=== PATIENT | female | born 2000 | race Caucasian/White ===

== ENCOUNTER 2020-07-08 10:15 | Emergency (ER) | payer OTHER ==
[~2020-07-08] VITALS: Ht 162.6 cm; Wt 63.6 kg
[2020-07-08 11:40] LABS: APPEARANCE,URINE CLOUDY (CLEAR); BILIRUBIN,URINE NEGATIVE (NEGATIVE); GLUCOSE, URINE (UA) NEGATIVE (NEGATIVE); KETONES,URINE TRACE mg/dL (NEGATIVE); LEUKOCYTE ESTERASE ,URINE MODERATE (NEGATIVE); NITRATE,URINE NEGATIVE (NEGATIVE); OCCULT BLOOD,URINE LARGE (NEGATIVE); PH,URINE 7.5 (5.0-8.0); PROTEIN,URINE POS 1+ (NEGATIVE)
[2020-07-08 11:55] LABS: BACTERIA,URINE None Seen /HPF (None Seen); SQUAMOUS EPITHELIAL CELL,UR Few /LPF (None Seen); WBC,URINE 26-50 /HPF (0-5)
[2020-07-08] MEDS ORDERED: NITROFURANTOIN/NITROFURAN MAC 100 MG CAPSULE [MACROBID] PO ONE (12:45)
[2020-07-08] MEDS ORDERED: PHENAZOPYRIDINE HCL 100 MG TABLET PO ONE (12:45)
[2020-07-08 12:59] VITALS: BP 116/75
== END 2020-07-08 13:00 | disposition home or self-care (01) ==
LOC: EMS 10:23
DX: N39.0 Urinary tract infection, site not specified (principal)
CPT/HCPCS: 87086; 87210; 87491; 87591

== ENCOUNTER 2020-09-28 12:34 | Emergency (ER) | payer OTHER ==
[~2020-09-28] VITALS: Ht 160 cm; Wt 59.1 kg
[2020-09-28 12:36] VITALS: BP 116/63
== END 2020-09-28 13:42 | disposition home or self-care (01) ==
LOC: EMS 12:46
DX: Z20.828 Contact with and (suspected) exposure to other viral communicable diseases (principal)
CPT/HCPCS: 99283; U0003

== ENCOUNTER 2020-10-14 19:50 | Emergency (ER) | payer OTHER ==
[~2020-10-14] VITALS: Ht 162.6 cm; Wt 65.0 kg
[2020-10-15 01:30] VITALS: BP 110/64
[2020-10-15] MEDS ORDERED: IBUPROFEN 400 MG TABLET PO ONE (01:30)
== END 2020-10-15 01:43 | disposition home or self-care (01) ==
LOC: EMS 19:50
DX: M79.644 Pain in right finger(s) (principal)

== ENCOUNTER 2022-10-08 17:48 | Emergency (ER) | payer OTHER ==
[~2022-10-08] VITALS: Ht 162.6 cm; Wt 63.6 kg
[2022-10-08 17:53] VITALS: BP 143/77
== END 2022-10-08 21:55 | disposition home or self-care (01) ==
LOC: EMS 21:55
DX: L72.0 Epidermal cyst (principal)
CPT/HCPCS: 99281; Z7502

== ENCOUNTER 2023-06-25 07:45 | Emergency (ER) | payer OTHER ==
[~2023-06-25] VITALS: Ht 162.6 cm; Wt 62.3 kg
[2023-06-25 08:03] LABS: COVID AG,FIA SOURCE NASAL SWAB
[2023-06-25 08:23] LABS: INFLUENZA TYPE A NEGATIVE FOR TYPE A (NEGATIVE); INFLUENZA TYPE B NEGATIVE FOR TYPE B (NEGATIVE)
[2023-06-25 08:24] LABS: SARS-COV2 (COVID) ANTIGEN,FIA Negative (Negative)
[2023-06-25 10:27] VITALS: BP 116/57; PULSE 70; RESP 18; TEMP 98
== END 2023-06-25 10:32 | disposition home or self-care (01) ==
LOC: EMS 07:58
DX: J06.9 Acute upper respiratory infection, unspecified (principal); Z20.822 Contact with and (suspected) exposure to COVID-19
CPT/HCPCS: 87430; 87804; 99283